=== PATIENT | male | born 2000 | race Hispanic/Latino ===

== ENCOUNTER 2022-09-29 08:32 | Inpatient (IN) | payer OTHER ==
[~2022-09-29] VITALS: Ht 175.3 cm; Wt 123.3 kg
[2022-09-29 08:59] LABS: BASOPHILS % (AUTO) 0.3 % (0.0-5.0); EOSINOPHILS % (AUTO) 1.4 % (0.0-8.0); HEMATOCRIT 42.7 % (42-54); LYMPHOCYTES % (AUTO) 26.4 % (21.0-51.0); MEAN CORPUSCULAR HEMOGLOBIN 31.7 pg (27.0-33.0); MEAN CORPUSCULAR HGB CONC 34.2 g/dL (32.0-36.0); MEAN CORPUSCULAR VOLUME 92.6 fL (79-99); MONOCYTES % (AUTO) 9.5 % (3.0-13.0); NEUTROPHILS % (AUTO) 61.6 % (40.0-77.0); PLATELET COUNT (AUTO) 197 K/uL (130-400); RED BLOOD CELL COUNT(AUTO) 4.61 MIL/uL (4.50-6.20); RED CELL DISTRIBUTION WIDTH 13.2 % (11.0-15.5); WHITE BLOOD COUNT (AUTO) 11.8 K/uL (4.8-10.8)
[2022-09-29] MEDS ORDERED: SODIUM BICARB 8.4% 50ML SYRING 150 MEQ in 0.9%NACL 1000ML 1,000 ML IVP SCH ×2 (09:00→11:00)
[2022-09-29 09:08] LABS: POTASSIUM 3.7 mmol/L (3.5-5.1)
[2022-09-29 09:32] LABS: ALBUMIN 4.1 g/dL (3.5-5.0); TOTAL PROTEIN, SERUM 7.5 g/dL (6.0-8.3)
[2022-09-29] MEDS ORDERED: ONDANSETRON 4MG INJ IVP PRN (11:30)
[2022-09-29] MEDS ORDERED: ACETAMINOPHEN 500 MG TABLET PO PRN (11:30)
[2022-09-29] MEDS: Vitamin B Complex/Vit C/Folic Acid PO SCH (11:42)
[2022-09-29] MEDS: THIAMINE HCL 100 MG/ML 2ML VIAL IVP SCH (11:42)
[2022-09-29] MEDS: 0.9%NACL 1000ML 1,000 ML IV SCH ×3 (11:43→23:17)
[2022-09-29] MEDS ORDERED: HYDROXYZINE 25 MG TABLET PO PRN (12:00)
[2022-09-29] MEDS ORDERED: Vitamin B Complex/Vit C/Folic Acid PO SCH (12:00)
[2022-09-29 12:07] LABS: HEMOGLOBIN A1C 5.3 % (4.0-6.0)
[2022-09-29 12:18] LABS: CRP QUANTITATIVE 7.5 mg/L (0.00-9.0); THYROID STIMULATING HORMONE 3.69 uIU/mL (0.36-3.74)
[2022-09-29] MEDS ORDERED: FOLIC ACID 5 MG/ML VIAL IV SCH (12:30)
[2022-09-29 12:56] LABS: APPEARANCE,URINE CLEAR (CLEAR); BILIRUBIN,URINE NEGATIVE (NEGATIVE); COLOR,URINE LIGHT-YELLOW (YELLOW); GLUCOSE, URINE (UA) NEGATIVE (NEGATIVE); KETONES,URINE 5 mg/dL (NEGATIVE); LEUKOCYTE ESTERASE ,URINE NEGATIVE Leu/uL (NEGATIVE); NITRATE,URINE NEGATIVE (NEGATIVE); OCCULT BLOOD,URINE NEGATIVE (NEGATIVE); PH,URINE 7.5 (5.0-8.0); PROTEIN,URINE NEGATIVE (NEGATIVE); UROBILINOGEN,URINE 0.2 mg/dL (0.2-1.0)
[2022-09-29 14:32] LABS: AMPHET/METH SCREEN,URINE NEGATIVE (NEGATIVE); BARBITURATE SCREEN, URINE NEGATIVE (NEGATIVE); BENZODIAZEPINES SCREEN,URINE NEGATIVE (NEGATIVE); CANNABINOID SCREEN,URINE POSITIVE (NEGATIVE); COCAINE SCREEN,URINE NEGATIVE (NEGATIVE); OPIATE SCREEN,URINE NEGATIVE (NEGATIVE); PHENCYCLIDINE SCREEN,URINE NEGATIVE (NEGATIVE)
[2022-09-29 21:33] LABS: CREATININE 0.8 mg/dL (0.5-1.5); MAGNESIUM 1.9 mg/dL (1.80-2.40); POTASSIUM 3.2 mmol/L (3.5-5.1)
[2022-09-30] MEDS ORDERED: POTASSIUM CHLORIDE 20MEQ/100ML 100 ML IV PRN (05:00)
[2022-09-30] MEDS ORDERED: POTASSIUM CHLORIDE 10% ELIXIR 20 MEQ/15 ML UDCUP PO PRN (05:00)
[2022-09-30] MEDS: 0.9%NACL 1000ML 1,000 ML IV SCH ×3 (08:16→21:16)
[2022-09-30] MEDS: AMLODIPINE 5 MG TAB PO SCH (08:17)
[2022-09-30] MEDS: KCL 20 MEQ ERTAB PO PRN ×2 (08:17→11:33)
[2022-09-30 08:57] LABS: BASOPHILS % (AUTO) 0.3 % (0.0-5.0); EOSINOPHILS % (AUTO) 1.9 % (0.0-8.0); HEMATOCRIT 41.1 % (42-54); LYMPHOCYTES % (AUTO) 25.7 % (21.0-51.0); MEAN CORPUSCULAR HEMOGLOBIN 31.5 pg (27.0-33.0); MEAN CORPUSCULAR HGB CONC 34.1 g/dL (32.0-36.0); MEAN CORPUSCULAR VOLUME 92.4 fL (79-99); MONOCYTES % (AUTO) 6.7 % (3.0-13.0); NEUTROPHILS % (AUTO) 64.7 % (40.0-77.0); PLATELET COUNT (AUTO) 177 K/uL (130-400); RED BLOOD CELL COUNT(AUTO) 4.45 MIL/uL (4.50-6.20); RED CELL DISTRIBUTION WIDTH 13.2 % (11.0-15.5)
[2022-09-30 09:50] LABS: ALBUMIN 3.3 g/dL (3.5-5.0); CREATININE 0.8 mg/dL (0.5-1.5); MAGNESIUM 1.9 mg/dL (1.80-2.40); POTASSIUM 3.4 mmol/L (3.5-5.1); TOTAL PROTEIN, SERUM 6.4 g/dL (6.0-8.3)
[2022-09-30] MEDS: THIAMINE HCL 100 MG/ML 2ML VIAL IVP SCH (11:33)
[2022-09-30] MEDS: Vitamin B Complex/Vit C/Folic Acid PO SCH (11:33)
[2022-09-30 19:30] VITALS: BP 158/98
[2022-10-01] VITALS: BP 126/81
[2022-10-01] MEDS: 0.9%NACL 1000ML 1,000 ML IV SCH ×3 (03:19→21:22)
[2022-10-01 04:00] VITALS: BP 132/88
[2022-10-01 07:00] LABS: HEMATOCRIT 42.9 % (42-54); MEAN CORPUSCULAR HGB CONC 32.9 g/dL (32.0-36.0); MEAN CORPUSCULAR VOLUME 94.3 fL (79-99); RED BLOOD CELL COUNT(AUTO) 4.55 MIL/uL (4.50-6.20); RED CELL DISTRIBUTION WIDTH 13.1 % (11.0-15.5); WHITE BLOOD COUNT (AUTO) 8.6 K/uL (4.8-10.8)
[2022-10-01 07:30] LABS: ALBUMIN 3.4 g/dL (3.5-5.0); POTASSIUM 3.6 mmol/L (3.5-5.1); TOTAL PROTEIN, SERUM 6.6 g/dL (6.0-8.3)
[2022-10-01 08:00] VITALS: BP 135/72
[2022-10-01] MEDS: AMLODIPINE 5 MG TAB PO SCH (08:52)
[2022-10-01] MEDS: THIAMINE HCL 100 MG/ML 2ML VIAL IVP SCH (11:30)
[2022-10-01 12:00] VITALS: BP 145/79
[2022-10-01] MEDS ORDERED: AMLO5TAB4 PO (12:17)
[2022-10-01] MEDS ORDERED: 0.9% NACL 500ML IV.SOLN 500 ML IV ONE (12:30)
[2022-10-01] MEDS: Vitamin B Complex/Vit C/Folic Acid PO SCH (12:50)
[2022-10-01 16:00] VITALS: BP 128/79
[2022-10-01 21:23] VITALS: BP 135/75
[2022-10-02 00:25] VITALS: BP 153/62
[2022-10-02] MEDS: 0.9%NACL 1000ML 1,000 ML IV SCH ×2 (04:06→12:38)
[2022-10-02 04:41] VITALS: BP 140/88
[2022-10-02 06:04] LABS: BASOPHILS % (AUTO) 0.4 % (0.0-5.0); EOSINOPHILS % (AUTO) 2.2 % (0.0-8.0); HEMATOCRIT 42.2 % (42-54); LYMPHOCYTES % (AUTO) 27.1 % (21.0-51.0); MEAN CORPUSCULAR HEMOGLOBIN 31.5 pg (27.0-33.0); MEAN CORPUSCULAR HGB CONC 33.4 g/dL (32.0-36.0); MEAN CORPUSCULAR VOLUME 94.2 fL (79-99); MONOCYTES % (AUTO) 9.3 % (3.0-13.0); NEUTROPHILS % (AUTO) 58.8 % (40.0-77.0); PLATELET COUNT (AUTO) 212 K/uL (130-400); RED BLOOD CELL COUNT(AUTO) 4.48 MIL/uL (4.50-6.20); RED CELL DISTRIBUTION WIDTH 12.9 % (11.0-15.5); WHITE BLOOD COUNT (AUTO) 10.1 K/uL (4.8-10.8)
[2022-10-02 07:19] LABS: ALBUMIN 3.4 g/dL (3.5-5.0); MAGNESIUM 1.8 mg/dL (1.80-2.40); POTASSIUM 3.6 mmol/L (3.5-5.1); TOTAL PROTEIN, SERUM 6.6 g/dL (6.0-8.3)
[2022-10-02 08:00] VITALS: BP 117/71
[2022-10-02] MEDS: AMLODIPINE 5 MG TAB PO SCH (08:34)
[2022-10-02] MEDS: THIAMINE HCL 100 MG/ML 2ML VIAL IVP SCH (11:30)
[2022-10-02 12:00] VITALS: BP 142/87
[2022-10-02] MEDS: Vitamin B Complex/Vit C/Folic Acid PO SCH (13:45)
== END 2022-10-02 17:03 | disposition home or self-care (01) | DRG 557 ==
LOC: EDH 08:32 → EDHIP 11:38 → 3DH 09-30 20:01
PROVIDERS: ADMIT Hospitalist; ATTEND Hospitalist
DX: M62.82 Rhabdomyolysis (principal); G92.8 Other toxic encephalopathy; Z68.41 Body mass index [BMI] 40.0-44.9, adult; Z20.822 Contact with and (suspected) exposure to COVID-19; I10 Essential (primary) hypertension; F60.0 Paranoid personality disorder; E66.9 Obesity, unspecified; F12.10 Cannabis abuse, uncomplicated; F13.10 Sedative, hypnotic or anxiolytic abuse, uncomplicated
CPT/HCPCS: 36415; 70450; 80048; 80053; 80305; 81003; 82550; 82948; 83036; 83735; 84145; 84443; 84484; 85025; 85027; 85651; 86140; 87635; 87804; 93005; 96361; 96374; G0378; J3411; J3490; J7030; J7040